=== PATIENT | male | born 1975 | race Caucasian/White ===

== ENCOUNTER 2018-06-09 03:45 | Emergency (ER) | payer BC, MEDICAID ==
[~2018-06-09] VITALS: Ht 182.9 cm; Wt 90.9 kg
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
[2018-06-09 04:26] VITALS: BP 112/68
== END 2018-06-09 04:27 ==
LOC: ER 03:46
DX: S00.81XA Abrasion of other part of head, initial encounter (principal); S80.812A Abrasion, left lower leg, initial encounter; S80.811A Abrasion, right lower leg, initial encounter; S40.812A Abrasion of left upper arm, initial encounter; S40.811A Abrasion of right upper arm, initial encounter; Z88.0 Allergy status to penicillin; V47.9XXA Unspecified car occupant injured in collision with fixed or stationary object in traffic accident, initial encounter; Y93.89 Activity, other specified; Y92.488 Other paved roadways as the place of occurrence of the external cause; Y99.8 Other external cause status
CPT/HCPCS: 99284